=== PATIENT | female | born 1980 | race Caucasian/White ===

== ENCOUNTER 2021-07-15 14:57 | Emergency (ER) | payer OTHER ==
[~2021-07-15] VITALS: Ht 154.9 cm; Wt 63.5 kg
[2021-07-15 15:22] VITALS: BP_SYST 136
--- NOTE | 2021-07-15 15:28 | NUR ---
Patient to ER bed h1 to gown for evaluation. Side rails up. Report given to Farhana BOB
[2021-07-15] MEDS ORDERED: NACL 0.9% 1,000 ML IV ONE (15:30)
--- NOTE | 2021-07-15 15:32 | NUR ---
ER DR. CARL AT THE BEDSIDE EXAMINING PT
--- NOTE | 2021-07-15 15:35 | NUR ---
PT CAME IN FROM WORK AFTER CHECKING BLOOD SUGAR AND HAVING A READING OF 500. PT STATES SHE HAS A HX OF DM AND CHECKS BLOOD SUGAR REGULARLY WELL COVERAGE WITH INSULIN AT HOME. PT IS AMBULATORY, AAOX4, V/S STABLE.
--- NOTE | 2021-07-15 15:40 | NUR ---
# 20 gauge angiocath placed to RAC. Use of asceptic technique. Opsite placed over site. Blood return noted. Flushed with 10 cc of normal saline. No evidence of infiltration noted. Patient tolerated well.
[2021-07-15] MEDS ORDERED: IBUP-1969 PO (15:56)
[2021-07-15] MEDS ORDERED: ONDA4TAB5 PO (15:56)
[2021-07-15] MEDS ORDERED: ONDANSETRON HCL 4 MG/2 ML VIAL IVP ONE (16:00)
[2021-07-15] MEDS ORDERED: KETOROLAC TROMETHAMINE 30 MG VIAL IVP ONE (16:00)
[2021-07-15 17:23] VITALS: BP_SYST 136
--- NOTE | 2021-07-15 17:24 | NUR ---
Patient given written and verbal discharge instructions and verbalizes understanding. ER MD discussed with patient the results and treatment provided. Patient in stable condition. ID arm band removed. IV catheter removed intact and dressing applied, no active bleeding. Rx of ZOFRAN AND IBUPROFEN given. Patient educated on pain management and to follow up with PMD. Pain Scale 0/10. Opportunity for questions provided and answered. Medication side effect fact sheet provided.
== END 2021-07-15 17:24 | disposition home or self-care (01) ==
LOC: SED 14:57
DX: E11.65 Type 2 diabetes mellitus with hyperglycemia (principal); R51.9 Headache, unspecified; R11.2 Nausea with vomiting, unspecified; Z79.899 Other long term (current) drug therapy
CPT/HCPCS: 81002; 82962; 96361; 96374; 96375; 99284; J1885; J2405; J7030